=== PATIENT | male | born 1995 | race Caucasian/White ===

== ENCOUNTER → 2019-08-03 | Outpatient (CLI) | payer OTHER ==
--- NOTE | 2019-08-03 18:23 | REP ---
Left foot series: Four views: History: Injury. Findings: Four views left foot show soft tissue swelling at the anterolateral aspect of the ankle with some dystrophic calcifications in the distal calf soft tissues with noted incidentally. No foot fracture or subluxation is seen. Impression: No fracture noted. Electronically Signed by Earle Welch MD 08/04/2019 07:50 A
--- NOTE | 2019-08-03 18:24 | REP ---
Left ankle series: Four views: History: Injury. Findings: There is moderate soft tissue swelling about the lateral malleolus. Ankle mortise is intact however and there is no visible fracture. Bones, joints and soft tissues are otherwise unremarkable. Impression: No fracture seen. Anterolateral soft tissue swelling. Electronically Signed by Earle Welch MD 08/04/2019 07:51 A
== END ==
LOC: M LRY 15:17
PROVIDERS: ATTEND Nurse Practitioner Family
DX: S99.912A Unspecified injury of left ankle, initial encounter (principal); X58.XXXA Exposure to other specified factors, initial encounter; Y92.9 Unspecified place or not applicable; M79.89 Other specified soft tissue disorders